=== PATIENT | male | born 1965 | race African-American/Black ===

== ENCOUNTER 2017-09-03 12:12 | Inpatient (IN) | payer OTHER ==
[2017-09-03 13:25] VITALS: BMI 20.3
--- NOTE | 2017-09-03 14:11 | HP ---
CIWA Score - CIWA Score Nausea/Vomitin-Mild Nausea/No Vomiting Muscle Tremors: 4-Moderate,w/Arms Extend Anxiety: 4-Mod. Anxious/Guarded Agitation: 4-Moderately Restless Paroxysmal Sweats: 1-Minimal Palms Moist Orientation: 0-Oriented Tacttile Disturbances: 1-Very Mild Itch/Numbness Auditory Disturbances: 0-None Visual Disturbances: 0-None Headache: 1-Very Mild CIWA-Ar Total Score: 16 Admission ROS BHS - HPI Chief Complaint: alcohol withdrawal sx Allergies/Adverse Reactions: Allergies Allergy/AdvReac Type Severity Reaction Status Date / Time No Known Allergies Allergy Verified 09/03/17 14:12 History of Present Illness: 52 years old male with long history of alcohol nicotine dependence has depression is admitted to detox Exam Limitations: No Limitations - Ebola screening Have you traveled outside of the country in the last 21 days: No Have you had contact with anyone from an Ebola affected area: No Have you been sick,other than usual withdrawal symptoms: No Do you have a fever: No - Review of Systems Constitutional: Chills, Loss of Appetite, Unintentional Wgt. Loss, Unexplained wgt Loss EENT: reports: Blurred Vision (eye glassess at home) Respiratory: reports: No Symptoms reported Cardiac: reports: No Symptoms Reported GI: reports: Nausea, Poor Appetite, Poor Fluid Intake, Abdominal cramping : reports: No Symptoms Reported Musculoskeletal: reports: No Symptoms Reported Integumentary: reports: No Symptoms Reported Neuro: reports: Tremors Endocrine: reports: No Symptoms Reported Hematology: reports: No Symptoms Reported Psychiatric: reports: Judgement Intact, Orientated x3, Anxious, Depressed Other Systems: Reviewed and Negative Patient History - Patient Medical History Hx Anemia: No Hx Asthma: No Hx Chronic Obstructive Pulmonary Disease (COPD): No Hx Cancer: No Hx Cardiac Disorders: No Hx Congestive Heart Failure: No Hx Hypertension: No Hx Hypercholesterolemia: No Hx Pacemaker: No HX Cerebrovascular Accident: No Hx Seizures: No Hx Dementia: No Hx Diabetes: No Hx Gastrointestinal Disorders: No Hx Liver Disease: No Hx Genitourinary Disorders: No Hx Sexually Transmitted Disorders: No Hx Renal Disease (ESRD): No Hx Thyroid Disease: No Hx Human Immunodeficiency Virus (HIV): No Hx Hepatitis C: No Hx Depression: Yes Hx Suicide Attempt: No Hx Bipolar Disorder: No Hx Schizophrenia: No - Patient Surgical History Past Surgical History: No - PPD History Previous Implant?: Yes Documented Results: Negative w/o proof Implanted On Prior [facility] Admission?: No PPD to be Administered?: Yes - Smoking Cessation Smoking history: Current every day smoker Have you smoked in the past 12 months: Yes Aproximately how many cigarettes per day: 10 Cigars Per Day: 0 Hx Chewing Tobacco Use: No Initiated information on smoking cessation: Yes 'Breaking Loose' booklet given: 09/03/17 - Substance & Tx. History Hx Alcohol Use: Yes Hx Substance Use: No Substance Use Type: Alcohol Hx Substance Use Treatment: No Family Disease History - Family Disease History Family Disease History: Other: Father (), Mother (), Sister ( ) Other Family History: adopted since age 4-5 Admission Physical Exam BHS - Vital Signs Vital Signs: Vital Signs - 24 hr 09/03/17 13:24 Temperature 97.4 F L Pulse Rate 80 Respiratory 20 Rate Blood Pressure 133/93 - Physical General Appearance: Yes: Appropriately Dressed, Mild Distress, Thin, Tremorous, Irritable, Sweating, Anxious HEENTM: Yes: Hearing grossly Normal, Normocephalic, Normal Voice Respiratory: Yes: Chest Non-Tender, Lungs Clear, Normal Breath Sounds, No Respiratory Distress, No Accessory Muscle Use Neck: Yes: Supple, Trachea in good position Breast: Yes: Breasts Symetrical, No Discharge Cardiology: Yes: Regular Rhythm, Regular Rate, S1, S2 Abdominal: Yes: Normal Bowel Sounds, Non Tender, Flat Genitourinary: Yes: Within Normal Limits Back: Yes: Normal Inspection Musculoskeletal: Yes: full range of Motion, Gait Steady Extremities: Yes: Normal Inspection, Normal Range of Motion, Non-Tender, Tremors Neurological: Yes: Fully Oriented, Alert, Motor Strength 5/5, Normal Response, Depressed Affect Integumentary: Yes: Warm Lymphatic: Yes: Within Normal Limits - Diagnostic (1) Alcohol dependence with uncomplicated withdrawal Current Visit: Yes Status: Acute (2) Eczema marginatum Current Visit: Yes Status: Chronic (3) Nicotine dependence Current Visit: Yes Status: Acute Qualifiers: Nicotine product type: cigarettes Substance use status: in withdrawal Qualified Code(s): F17.213 - Nicotine dependence, cigarettes, with withdrawal (4) Weight loss Current Visit: Yes Status: Acute (5) Depression (emotion) Current Visit: Yes Status: Suspected Qualifiers: Depression Type: dysthymia Qualified Code(s): F34.1 - Dysthymic disorder Cleared for Admission [facility] - Detox or Rehab [facility] Level of Care: Medically Managed Detox Regimen/Protocol: Librium [facility] Breath Alcohol Content Breath Alcohol Content: 0.032 Urine Drug Screen - Control Is Test Valid: Yes - Results Drug Screen Negative: Yes
[2017-09-03] MEDS ORDERED: ACETAMINOPHEN 325 MG TABLET (FP) PO PRN (14:30)
[2017-09-03] MEDS ORDERED: LOPERAMIDE HCL 2 MG CAPSULE PO PRN (14:30)
[2017-09-03] MEDS ORDERED: MAGNESIUM HYDROX 2400MG/30ML ORAL SUSPENSION 30 ML CUP PO PRN (14:30)
[2017-09-03] MEDS ORDERED: P-EPHED 60MG/TRIPROLIDI 2.5MG TABLET PO PRN (14:30)
[2017-09-03] MEDS ORDERED: MAGNESIUM CITRATE 300 ML BOTTLE PO PRN (14:30)
[2017-09-03] MEDS ORDERED: MAG HYDROX/AL HYDROX/SIMETH 30 ML UNIT-DOSE CUP PO PRN (14:30)
[2017-09-03] MEDS ORDERED: IBUPROFEN 400 MG TABLET (FP) PO PRN (14:30)
[2017-09-03] MEDS ORDERED: chlordiazePOXIDE HCL 25 MG CAPSULE PO PRN (14:30)
[2017-09-03] MEDS ORDERED: guaiFENesin/D-METHORPHAN HB 10 ML UNIT-DOSE CUPS PO PRN (14:30)
[2017-09-03] MEDS ORDERED: MENTHOL/PHENOL 1 EACH UD MM PRN (14:30)
[2017-09-03] MEDS ORDERED: COLLOIDAL OATMEAL 1 BAR EACH TP PRN (14:36)
[2017-09-03] MEDS ORDERED: chlordiazePOXIDE HCL 25 MG CAPSULE PO ONE (16:45)
[2017-09-03] MEDS: NICOTINE 14 MG/24 HOURS TOPICAL PATCH TD SCH (17:09)
[2017-09-03] MEDS: NICOTINE POLACRILEX 2 MG GUM BC PRN (17:15)
[2017-09-03] MEDS: THIAMINE HCL 100 MG TABLET (FP) PO SCH (22:17)
[2017-09-03] MEDS: MELATONIN 5 MG TABLETS PO PRN (22:18)
[2017-09-03] MEDS: MINERAL OIL/PETROLAT/WATER TOPICAL CREAM 113 GM JAR TP SCH (22:18)
[2017-09-03] MEDS: chlordiazePOXIDE HCL 25 MG CAPSULE PO SCH (22:18)
[2017-09-04] MEDS: chlordiazePOXIDE HCL 25 MG CAPSULE PO SCH ×4 (05:29→23:44)
--- NOTE | 2017-09-04 10:00 | CONSULT ---
[facility] Psychiatric Consult - Data Date of interview: 09/04/17 Admission source: [facility] Identifying data: Mr Faye is a 52 years old single Black male, father of a 23 years old daughter, unemployed with no source of income, domiciled seeking detox treatment for alcohol Substance Abuse History: Reports history of alcohol use. Refer to addiction counselor's note for further information Medical History: Significant for eczema. Smokes 10 cigarettes daily Psychiatric History: Denies history of previous psychiatric treatment Physical/Sexual Abuse/Trauma History: Denies history of emotional, physical or sexual abuse as well as DV relationship Mental Status Exam - Mental Status Exam Alert and Oriented to: Time, Place, Person Cognitive Function: Fair Patient Appearance: Well Groomed Mood: Hopeful, Euthymic Affect: Appropriate Patient Behavior: Cooperative Speech Pattern: Clear Voice Loudness: Normal Thought Process: Intact, Goal Oriented Thought Disorder: Not Present Hallucinations: Denies Suicidal Ideation: Denies Homicidal Ideation: Denies Insight/Judgement: Poor Sleep: Well Appetite: Good Muscle strength/Tone: Normal Gait/Station: Normal Psychiatric Findings - Problem List ([place] 1, 2,3) (1) Alcohol dependence with uncomplicated withdrawal Current Visit: Yes Status: Acute (2) Nicotine dependence Current Visit: Yes Status: Chronic Qualifiers: Nicotine product type: cigarettes Substance use status: in withdrawal Qualified Code(s): F17.213 - Nicotine dependence, cigarettes, with withdrawal (3) Eczema marginatum Current Visit: Yes Status: Chronic - Initial Treatment Plan Initial Treatment Plan: Continue inpatient detoxication
[2017-09-04] MEDS: PRENATAL VITAMINS W/ FOLIC ACID TABLET (FP) PO SCH (10:09)
[2017-09-04] MEDS: NICOTINE POLACRILEX 2 MG GUM BC PRN ×2 (10:09→17:28)
[2017-09-04] MEDS: NICOTINE 14 MG/24 HOURS TOPICAL PATCH TD SCH (10:10)
[2017-09-04 10:19] LABS: HEMATOCRIT 36.5 % (35.4-49); HEMOGLOBIN 12.5 GM/dL (11.7-16.9); MCH 34.5 pg (25.7-33.7); MCHC 34.4 g/dl (32.0-35.9); MEAN CELL VOLUME 100.3 fl (80-96); MEAN PLT VOLUME 8.3 fl (7.5-11.1); PLATELET COUNT 182 K/MM3 (134-434); RBC 3.63 M/mm3 (4.00-5.60); RDW 13.5 % (11.9-15.9); WHITE BLOOD COUNT 6.4 K/mm3 (4.0-10.0)
[2017-09-04 10:22] LABS: CHLORIDE 98 mmol/L (98-107); POTASSIUM 4.3 mmol/L (3.5-5.1); SODIUM 135 mmol/L (136-145)
[2017-09-04 10:46] LABS: ALK PHOS 173 U/L (45-117); ANION GAP 11 (8-16); BILIRUBIN,TOTAL 0.9 mg/dL (0.2-1.0); BLOOD UREA NITROGEN 5 mg/dL (7-18); CALCIUM 8.7 mg/dL (8.5-10.1); CO2 26 mmol/L (21-32); GLUCOSE,RANDOM 128 mg/dL (74-106); SGOT/AST 81 U/L (15-37); SGPT/ALT 26 U/L (12-78); TOT PROT 8.2 g/dl (6.4-8.2)
--- NOTE | 2017-09-04 12:03 | EKG ---
Test Reason : Blood Pressure : / mmHG Vent. Rate : 062 BPM Atrial Rate : 062 BPM P-R Int : 170 ms QRS Dur : 080 ms QT Int : 398 ms P-R-T Axes : 059 059 057 degrees QTc Int : 403 ms NORMAL SINUS RHYTHM VOLTAGE CRITERIA FOR LEFT VENTRICULAR HYPERTROPHY ABNORMAL ECG NO PREVIOUS ECGS AVAILABLE Confirmed by RIOS TOM MD ([id number]) on 09/04/2017 12:03:06 PM Referred By: Confirmed By:RIOS TOM MD
--- NOTE | 2017-09-04 12:55 | PN ---
S CIWA - CIWA Score Nausea/Vomitin-No Nausea/No Vomiting Muscle Tremors: 2 Anxiety: 4-Mod. Anxious/Guarded Agitation: 2 Paroxysmal Sweats: 3 Orientation: 0-Oriented Tacttile Disturbances: 2-Mild Itch/Numbness/Burn Auditory Disturbances: 1-Very Mild Visual Disturbances: 3-Moderate Sensitivity Headache: 0-None Present CIWA-Ar Total Score: 17 BHS Progress Note (SOAP) Subjective: Tremors, Sweating, Anxious, Body Aches. Objective: PATIENT A & O X 3. NO ACUTE DISTRESS. 09/04/17 12:55 Vital Signs Temperature 98.1 F 09/04/17 09:25 Pulse Rate 87 09/04/17 09:25 Respiratory Rate 20 09/04/17 09:25 Blood Pressure 135/94 09/04/17 09:25 O2 Sat by Pulse Oximetry (%) Laboratory Tests 09/04/17 09/04/17 09/04/17 06:00 06:00 06:00 WBC 6.4 RBC 3.63 L Hgb 12.5 Hct 36.5 MCV 100.3 H MCH 34.5 H MCHC 34.4 RDW 13.5 Plt Count 182 MPV 8.3 Sodium 135 L Potassium 4.3 Chloride 98 Carbon Dioxide 26 Anion Gap 11 BUN 5 L Creatinine 1.0 Creat Clearance w eGFR > 60 Random Glucose 128 H Calcium 8.7 Total Bilirubin 0.9 AST 81 H ALT 26 Alkaline Phosphatase 173 H Total Protein 8.2 Albumin 4.0 RPR Titer Nonreactive LABS NOTED. UA RESULTS PENDING. 09/04/17 12:56 Assessment: 09/04/17 12:56 [id number] SYMPTOMS. Plan: CONTINUE DETOX. INCREASE DAILY PO FLUID INTAKE.
[2017-09-04 17:31] LABS: URINE APPEARANCE CLEAR; URINE BILIRUBIN NEGATIVE (<2.0 mg/dL); URINE COLOR YELLOW; URINE GLUCOSE (UA) NEGATIVE (NEGATIVE); URINE KETONE NEGATIVE (NEGATIVE); URINE LEUK ESTERASE NEGATIVE (NEGATIVE); URINE NITRITE NEGATIVE (NEGATIVE); URINE PROTEIN 2+ (NEGATIVE)
[2017-09-04 17:55] LABS: URINE MUCUS RARE
--- NOTE | 2017-09-04 18:42 | PN ---
[facility] Progress Note Note: Patient s/p unwitnessed fall in the dinning area. As per patient his legs felt weak and he fell and hit the table with his chest. Denies JOHNSON, SOB, CP, vertigo. Vital Signs Temperature 95.3 F L 09/04/17 17:55 Pulse Rate 82 09/04/17 17:55 Respiratory Rate 18 09/04/17 17:55 Blood Pressure 129/86 09/04/17 17:55 O2 Sat by Pulse Oximetry (%) Laboratory Last Values WBC 6.4 K/mm3 (4.0-10.0) 09/04/17 06:00 RBC 3.63 M/mm3 (4.00-5.60) L 09/04/17 06:00 Hgb 12.5 GM/dL (11.7-16.9) 09/04/17 06:00 Hct 36.5 % (35.4-49) 09/04/17 06:00 MCV 100.3 fl (80-96) H 09/04/17 06:00 MCH 34.5 pg (25.7-33.7) H 09/04/17 06:00 MCHC 34.4 g/dl (32.0-35.9) 09/04/17 06:00 RDW 13.5 % (11.9-15.9) 09/04/17 06:00 Plt Count 182 K/MM3 (134-434) 09/04/17 06:00 MPV 8.3 fl (7.5-11.1) 09/04/17 06:00 Sodium 135 mmol/L (136-145) L 09/04/17 06:00 Potassium 4.3 mmol/L (3.5-5.1) 09/04/17 06:00 Chloride 98 mmol/L (98-107) 09/04/17 06:00 Carbon Dioxide 26 mmol/L (21-32) 09/04/17 06:00 Anion Gap 11 (8-16) 09/04/17 06:00 BUN 5 mg/dL (7-18) L 09/04/17 06:00 Creatinine 1.0 mg/dL (0.7-1.3) 09/04/17 06:00 Creat Clearance w eGFR > 60 (>60) 09/04/17 06:00 Random Glucose 128 mg/dL (74-106) H 09/04/17 06:00 Calcium 8.7 mg/dL (8.5-10.1) 09/04/17 06:00 Total Bilirubin 0.9 mg/dL (0.2-1.0) 09/04/17 06:00 AST 81 U/L (15-37) H 09/04/17 06:00 ALT 26 U/L (12-78) 09/04/17 06:00 Alkaline Phosphatase 173 U/L (45-117) H 09/04/17 06:00 Total Protein 8.2 g/dl (6.4-8.2) 09/04/17 06:00 Albumin 4.0 g/dl (3.4-5.0) 09/04/17 06:00 Urine Color Yellow 09/04/17 13:40 Urine Appearance Clear 09/04/17 13:40 Urine pH 7.0 (5.0-8.0) 09/04/17 13:40 Ur Specific [place] 1.015 (1.001-1.035) 09/04/17 13:40 Urine Protein 2+ (NEGATIVE) H 09/04/17 13:40 Urine Glucose (UA) Negative (NEGATIVE) 09/04/17 13:40 Urine Ketones Negative (NEGATIVE) 09/04/17 13:40 Urine Blood Negative (NEGATIVE) 09/04/17 13:40 Urine Nitrite Negative (NEGATIVE) 09/04/17 13:40 Urine Bilirubin Negative (<2.0 mg/dL) 09/04/17 13:40 Urine Urobilinogen 2.0 mg/dL (0.2-1.0) 09/04/17 13:40 Ur Leukocyte Esterase Negative (NEGATIVE) 09/04/17 13:40 Urine WBC (Auto) <1 /hpf (3-5) 09/04/17 13:40 Urine RBC (Auto) 1 /hpf (0-3) 09/04/17 13:40 Urine Mucus Rare 09/04/17 13:40 RPR Titer Nonreactive (NONREACTIVE) 09/04/17 06:00 A/P Patient AOx3, no loss LOC Full ROM No adventitious breath sounds No edema Plan: Fall Protocol #1
[2017-09-04] MEDS: MINERAL OIL/PETROLAT/WATER TOPICAL CREAM 113 GM JAR TP SCH (23:43)
[2017-09-04] MEDS: THIAMINE HCL 100 MG TABLET (FP) PO SCH (23:44)
[2017-09-05] MEDS: chlordiazePOXIDE HCL 25 MG CAPSULE PO SCH ×3 (05:34→17:23)
[2017-09-05] MEDS: NICOTINE POLACRILEX 2 MG GUM BC PRN ×3 (08:57→22:34)
[2017-09-05] MEDS: NICOTINE 14 MG/24 HOURS TOPICAL PATCH TD SCH (10:06)
[2017-09-05] MEDS: PRENATAL VITAMINS W/ FOLIC ACID TABLET (FP) PO SCH (10:06)
--- NOTE | 2017-09-05 10:30 | PN ---
S CIWA - CIWA Score Nausea/Vomitin-No Nausea/No Vomiting Muscle Tremors: 2 Anxiety: 3 Agitation: 1-Slight > Activity Paroxysmal Sweats: No Perspiration Orientation: 0-Oriented Tacttile Disturbances: 3-Moderate Itch/Numb/Burn Auditory Disturbances: 0-None Visual Disturbances: 3-Moderate Sensitivity Headache: 0-None Present CIWA-Ar Total Score: 12 BHS Progress Note (SOAP) Subjective: Fatigue, Constipation, Tremors. Patient denies body pain and H/A. Patient denies any wound or injury to head or body after fall that occurred last night in [place] (patient was evaluated [facility] after fall occurred). Objective: PATIENT A & O X 3. NO ACUTE DISTRESS. CT SCAN OF HEAD DONE AT [facility] FOR FALL THAT OCCURRED LAST NIGHT NEGATIVE FOR ACUTE PATHOLOGY. 09/05/17 10:29 Vital Signs Temperature 96.6 F L 09/05/17 10:10 Pulse Rate 107 H 09/05/17 10:10 Respiratory Rate 20 09/05/17 10:10 Blood Pressure 119/81 09/05/17 10:10 O2 Sat by Pulse Oximetry (%) Laboratory Tests 09/04/17 09/04/17 09/04/17 06:00 06:00 06:00 WBC 6.4 RBC 3.63 L Hgb 12.5 Hct 36.5 MCV 100.3 H MCH 34.5 H MCHC 34.4 RDW 13.5 Plt Count 182 MPV 8.3 Sodium 135 L Potassium 4.3 Chloride 98 Carbon Dioxide 26 Anion Gap 11 BUN 5 L Creatinine 1.0 Creat Clearance w eGFR > 60 Random Glucose 128 H Calcium 8.7 Total Bilirubin 0.9 AST 81 H ALT 26 Alkaline Phosphatase 173 H Total Protein 8.2 Albumin 4.0 Urine Color Urine Appearance Urine pH Ur Specific [place] Urine Protein Urine Glucose (UA) Urine Ketones Urine Blood Urine Nitrite Urine Bilirubin Urine Urobilinogen Ur Leukocyte Esterase Urine WBC (Auto) Urine RBC (Auto) Urine Mucus RPR Titer Nonreactive 09/04/17 13:40 WBC RBC Hgb Hct MCV MCH MCHC RDW Plt Count MPV Sodium Potassium Chloride Carbon Dioxide Anion Gap BUN Creatinine Creat Clearance w eGFR Random Glucose Calcium Total Bilirubin AST ALT Alkaline Phosphatase Total Protein Albumin Urine Color Yellow Urine Appearance Clear Urine pH 7.0 Ur Specific [place] 1.015 Urine Protein 2+ H Urine Glucose (UA) Negative Urine Ketones Negative Urine Blood Negative Urine Nitrite Negative Urine Bilirubin Negative Urine Urobilinogen 2.0 Ur Leukocyte Esterase Negative Urine WBC (Auto) <1 Urine RBC (Auto) 1 Urine Mucus Rare RPR Titer LABS NOTED. 09/05/17 10:34 Assessment: 09/05/17 10:35 WITHDRAWAL SYMPTOMS. Plan: CONTINUE DETOX. INCREASE DAILY PO FLUID INTAKE. ER MEDICAL MEDICAL PROVIDER WHO EVALUATE PATIENT AFTER FALL LAST NIGHT RECOMMENDED AMLODIPINE, 5 MG PO DAILY FOR TIME BEING DUE TO ELEVATED BP. HOWEVER , LAST COUPLE OF BP READINGS WITHIN NORMAL LIMITS. WILL OBSERVE AND MONITOR BP BEFORE DETERMINING WHETHER OR NOT TO ORDER AMLODIPINE OVER NEXT COUPLE OF DAYS.
[2017-09-05] MEDS: chlordiazePOXIDE 5 MG CAPSULE PO SCH (22:33)
[2017-09-05] MEDS: THIAMINE HCL 100 MG TABLET (FP) PO SCH (22:33)
[2017-09-05] MEDS: MINERAL OIL/PETROLAT/WATER TOPICAL CREAM 113 GM JAR TP SCH (22:34)
[2017-09-05] MEDS: MELATONIN 5 MG TABLETS PO PRN (22:36)
[2017-09-06] MEDS: chlordiazePOXIDE 5 MG CAPSULE PO SCH ×3 (05:34→17:34)
[2017-09-06] MEDS: NICOTINE POLACRILEX 2 MG GUM BC PRN ×2 (05:37→22:28)
[2017-09-06] MEDS: PRENATAL VITAMINS W/ FOLIC ACID TABLET (FP) PO SCH (10:20)
[2017-09-06] MEDS: NICOTINE 14 MG/24 HOURS TOPICAL PATCH TD SCH (10:21)
--- NOTE | 2017-09-06 15:05 | PN ---
[facility] Progress Note (SOAP) Subjective: Fatigue, Sweating. Objective: PATIENT A & O X 3, OBSERVED AMBULATING ON UNIT. NO ACUTE DISTRESS. 09/06/17 15:03 Vital Signs Temperature 97.7 F 09/06/17 14:48 Pulse Rate 117 H 09/06/17 14:48 Respiratory Rate 20 09/06/17 14:48 Blood Pressure 111/75 09/06/17 14:48 O2 Sat by Pulse Oximetry (%) Laboratory Tests 09/04/17 09/04/17 09/04/17 06:00 06:00 06:00 WBC 6.4 RBC 3.63 L Hgb 12.5 Hct 36.5 MCV 100.3 H MCH 34.5 H MCHC 34.4 RDW 13.5 Plt Count 182 MPV 8.3 Sodium 135 L Potassium 4.3 Chloride 98 Carbon Dioxide 26 Anion Gap 11 BUN 5 L Creatinine 1.0 Creat Clearance w eGFR > 60 Random Glucose 128 H Calcium 8.7 Total Bilirubin 0.9 AST 81 H ALT 26 Alkaline Phosphatase 173 H Total Protein 8.2 Albumin 4.0 Urine Color Urine Appearance Urine pH Ur Specific [place] Urine Protein Urine Glucose (UA) Urine Ketones Urine Blood Urine Nitrite Urine Bilirubin Urine Urobilinogen Ur Leukocyte Esterase Urine WBC (Auto) Urine RBC (Auto) Urine Mucus RPR Titer Nonreactive 09/04/17 13:40 WBC RBC Hgb Hct MCV MCH MCHC RDW Plt Count MPV Sodium Potassium Chloride Carbon Dioxide Anion Gap BUN Creatinine Creat Clearance w eGFR Random Glucose Calcium Total Bilirubin AST ALT Alkaline Phosphatase Total Protein Albumin Urine Color Yellow Urine Appearance Clear Urine pH 7.0 Ur Specific [place] 1.015 Urine Protein 2+ H Urine Glucose (UA) Negative Urine Ketones Negative Urine Blood Negative Urine Nitrite Negative Urine Bilirubin Negative Urine Urobilinogen 2.0 Ur Leukocyte Esterase Negative Urine WBC (Auto) <1 Urine RBC (Auto) 1 Urine Mucus Rare RPR Titer LABS NOTED. Assessment: 09/06/17 15:03 WITHDRAWAL SYMPTOMS. Plan: CONTINUE DETOX. PATIENT SCHEDULED FOR D/C TOMORROW.
[2017-09-06] MEDS: chlordiazePOXIDE HCL 10 MG CAPSULE PO SCH (22:27)
[2017-09-06] MEDS: THIAMINE HCL 100 MG TABLET (FP) PO SCH (22:27)
[2017-09-06] MEDS: MINERAL OIL/PETROLAT/WATER TOPICAL CREAM 113 GM JAR TP SCH (22:28)
[2017-09-06] MEDS: MELATONIN 5 MG TABLETS PO PRN (22:28)
[2017-09-07] MEDS: chlordiazePOXIDE HCL 10 MG CAPSULE PO SCH (05:17)
[2017-09-07] MEDS: NICOTINE POLACRILEX 2 MG GUM BC PRN (05:18)
[2017-09-07 06:23] VITALS: BP 124/71; PULSE 69; TEMP 97.9
--- NOTE | 2017-09-07 20:01 | PN ---
[facility] Progress Note (SOAP) Subjective: Patient denies current Detox symptoms and reports that he feels well overall. Objective: PATIENT A & O X 3, OBSERVED AMBULATING ON UNIT. NO ACUTE DISTRESS. 09/07/17 20:01 Vital Signs Temperature 97.9 F 09/07/17 06:22 Pulse Rate 69 09/07/17 06:22 Respiratory Rate 18 09/07/17 06:22 Blood Pressure 124/71 09/07/17 06:22 O2 Sat by Pulse Oximetry (%) Laboratory Tests 09/04/17 09/04/17 09/04/17 06:00 06:00 06:00 WBC 6.4 RBC 3.63 L Hgb 12.5 Hct 36.5 MCV 100.3 H MCH 34.5 H MCHC 34.4 RDW 13.5 Plt Count 182 MPV 8.3 Sodium 135 L Potassium 4.3 Chloride 98 Carbon Dioxide 26 Anion Gap 11 BUN 5 L Creatinine 1.0 Creat Clearance w eGFR > 60 Random Glucose 128 H Calcium 8.7 Total Bilirubin 0.9 AST 81 H ALT 26 Alkaline Phosphatase 173 H Total Protein 8.2 Albumin 4.0 Urine Color Urine Appearance Urine pH Ur Specific [place] Urine Protein Urine Glucose (UA) Urine Ketones Urine Blood Urine Nitrite Urine Bilirubin Urine Urobilinogen Ur Leukocyte Esterase Urine WBC (Auto) Urine RBC (Auto) Urine Mucus RPR Titer Nonreactive 09/04/17 13:40 WBC RBC Hgb Hct MCV MCH MCHC RDW Plt Count MPV Sodium Potassium Chloride Carbon Dioxide Anion Gap BUN Creatinine Creat Clearance w eGFR Random Glucose Calcium Total Bilirubin AST ALT Alkaline Phosphatase Total Protein Albumin Urine Color Yellow Urine Appearance Clear Urine pH 7.0 Ur Specific [place] 1.015 Urine Protein 2+ H Urine Glucose (UA) Negative Urine Ketones Negative Urine Blood Negative Urine Nitrite Negative Urine Bilirubin Negative Urine Urobilinogen 2.0 Ur Leukocyte Esterase Negative Urine WBC (Auto) <1 Urine RBC (Auto) 1 Urine Mucus Rare RPR Titer LABS NOTED. Assessment: 09/07/17 20:01 COMPLETION OF DETOX REGIMEN. Plan: PATIENT SCHEDULED FOR DISCHARGE FORM DETOX UNIT TODAY.
--- NOTE | 2017-09-07 20:05 | DS ---
[facility] Detox Discharge Summary Admission Date: 09/03/17 Discharge Date: 09/07/17 - History Present History: Alcohol Dependence Additional Comments: PATIENT GOING TO [facility] OUTPATIENT SUBSTANCE USE TREATMENT PROGRAM ([facility]ES [facility]) FOR AFTERCARE. PATIENT WAS DISCHARGED FORM DETOX UNIT IN STABLE MEDICAL CONDITION. Pertinent Past History: Weight Loss, Depression, Eczema Marginatum, Nicotine Dependence. - Physical Exam Results Vital Signs: Vital Signs Temperature 97.9 F 09/07/17 06:22 Pulse Rate 69 09/07/17 06:22 Respiratory Rate 18 09/07/17 06:22 Blood Pressure 124/71 09/07/17 06:22 O2 Sat by Pulse Oximetry (%) Pertinent Admission Physical Exam Findings: WITHDRAWAL SYMPTOMS. Laboratory Tests 09/04/17 09/04/17 09/04/17 06:00 06:00 06:00 WBC 6.4 RBC 3.63 L Hgb 12.5 Hct 36.5 MCV 100.3 H MCH 34.5 H MCHC 34.4 RDW 13.5 Plt Count 182 MPV 8.3 Sodium 135 L Potassium 4.3 Chloride 98 Carbon Dioxide 26 Anion Gap 11 BUN 5 L Creatinine 1.0 Creat Clearance w eGFR > 60 Random Glucose 128 H Calcium 8.7 Total Bilirubin 0.9 AST 81 H ALT 26 Alkaline Phosphatase 173 H Total Protein 8.2 Albumin 4.0 Urine Color Urine Appearance Urine pH Ur Specific [place] Urine Protein Urine Glucose (UA) Urine Ketones Urine Blood Urine Nitrite Urine Bilirubin Urine Urobilinogen Ur Leukocyte Esterase Urine WBC (Auto) Urine RBC (Auto) Urine Mucus RPR Titer Nonreactive 09/04/17 13:40 WBC RBC Hgb Hct MCV MCH MCHC RDW Plt Count MPV Sodium Potassium Chloride Carbon Dioxide Anion Gap BUN Creatinine Creat Clearance w eGFR Random Glucose Calcium Total Bilirubin AST ALT Alkaline Phosphatase Total Protein Albumin Urine Color Yellow Urine Appearance Clear Urine pH 7.0 Ur Specific [place] 1.015 Urine Protein 2+ H Urine Glucose (UA) Negative Urine Ketones Negative Urine Blood Negative Urine Nitrite Negative Urine Bilirubin Negative Urine Urobilinogen 2.0 Ur Leukocyte Esterase Negative Urine WBC (Auto) <1 Urine RBC (Auto) 1 Urine Mucus Rare RPR Titer LABS NOTED. - Treatment Hospital Course: Detox Protocol Followed, Detoxed Safely, Responded well, Discharged Condition Good Patient has Accepted a Rehab Referral to: PT GOING TO [facility] OP SUBSTACNE USE TREATMENT PROGRAM ([facility]ri[facility]MPHRE[facility]). - Medication Discharge Medications: Ambulatory Orders Amlodipine Besylate [Norvasc -] 5 mg PO DAILY #14 tab 09/05/17 - Diagnosis (1) Alcohol dependence with uncomplicated withdrawal Status: Acute (2) Weight loss Status: Acute (3) Eczema marginatum Status: Chronic (4) Nicotine dependence Status: Chronic Qualifiers: Nicotine product type: cigarettes Substance use status: in withdrawal Qualified Code(s): F17.213 - Nicotine dependence, cigarettes, with withdrawal (5) Depression (emotion) Status: Suspected Qualifiers: Depression Type: dysthymia Qualified Code(s): F34.1 - Dysthymic disorder - AMA Did Patient Leave Against Medical Advice: No
== END 2017-09-07 09:39 | disposition home or self-care (01) | DRG 775 ==
LOC: YASAS 12:12 → Y3N 15:39
PROVIDERS: ADMIT Internal Medicine; ATTEND Internal Medicine
PROC: HZ2ZZZZ Detoxification Services for Substance Abuse Treatment (ICD-10-PCS; principal; 2017-09-03)
DX: F10.230 Alcohol dependence with withdrawal, uncomplicated (principal); F17.213 Nicotine dependence, cigarettes, with withdrawal; F34.1 Dysthymic disorder; B35.6 Tinea cruris; Z68.20 Body mass index [BMI] 20.0-20.9, adult
CPT/HCPCS: 36415; 80053; 81003; 81015; 85027; 86593; 93005; 93010

== ENCOUNTER 2017-09-04 21:05 | Emergency (ER) | payer OTHER ==
[2017-09-04 21:15] VITALS: BMI 25.1
--- NOTE | 2017-09-04 21:36 | PDOC ---
Attending Attestation - Resident Resident Name: Austin Calero - ED Attending Attestation I have performed the following: I have examined & evaluated the patient, The case was reviewed & discussed with the resident, I agree w/resident's findings & plan, Exceptions are as noted - Physicial Exam PE: 09/04/17 21:43 *Physical Exam General Appearance: Yes: Appropriately Dressed. No: Apparent Distress, Intoxicated HEENT: positive: EOMI, LESLIE, Normal ENT Inspection, Normal Voice, TMs Normal, Pharynx Normal. negative: Pale Conjunctivae, Photophobia, Scleral Icterus (R), Scleral Icterus (L) Neck: positive: Trachea midline, Normal Thyroid, Supple. negative: Tender, Rigid, Carotid bruit, Stridor, Lymphadenopathy (R), Lymphadenopathy (L), Thyromegaly Respiratory/Chest: positive: Lungs Clear, Normal Breath Sounds. negative: Chest Tender, Respiratory Distress, Accessory Muscle Use, Labored Respiration, RES, Crackles, Rales, Rhonchi, Stridor, Wheezing, Dullness Cardiovascular: positive: Regular Rhythm, Regular Rate, S1, S2. negative: Edema , JVD, Murmur, Bradycardia, Tachycardia Vascular Pulses: Dorsalis-Pedis (R): 2+, Doralis-Pedis (L): 2+ Gastrointestinal/Abdominal: positive: Normal Bowel Sounds, Flat, Soft. negative : Tender, Organomegaly, Pulsatile Mass, Increased Bowel Sounds, Decreased BS, Distended, Guarding, Rebound, Hernia, Hepatomegaly, Spleenomegaly Lymphatic: negative: Adenopathy, Tenderness Musculoskeletal: positive: Normal Inspection. negative: CVA Tenderness, Decreased Range of Motion Extremity: positive: Normal Capillary Refill, Normal Inspection, Normal Range of Motion, Pelvis Stable. negative: Tender, Pedal Edema, Swelling, Erythema Integumentary: positive: Normal Color, Dry, Warm. negative: Cyanotic, Erythema , Jaundice, Rash Neurologic: positive: event specialist II-XII NML intact, Fully Oriented, Alert, Normal Mood/ Affect, Motor Strength 5/5. negative: EOM Palsy, Facial Droop, Sensory Deficit <Ron Zepeda - Last Filed: 09/04/17 21:43> - HPI HPI: 09/04/17 21:49 The patient is 52 year old male with past medical history of depression presents to the emergency department s/p unwitnessed fall. The patient is coming from [facility] [place] [facility], on a detox program, after falling and hitting his chest. The patient reports for the past 1 year hes been experiencing episodes of lightheadedness w/ ataxia, during these episodes he would sit himself down or have a beer, then resolves on its own. The patient states out of all the episodes only 3 has been worse, 2x at home and 1x at [place] [facility]. The patient currently has no complains. Denies chest pain, SOB, wheezing. Denies numbness, tingling or loss of sensation. Denies loss of conscious or hitting his head. Allergies: NKDA Social history: As per the reports, the patient has a long history of alcohol use. Everyday use of cigarettes. Denies the use of recreational drugs. Surgical history: None reported - Medical Decision Making 09/04/17 21:49 Documentation prepared by Bing Warren, acting as medical malpractice paralegal for Ron Zepeda DO <Bing Warren - Last Filed: 09/04/17 21:50>
--- NOTE | 2017-09-04 22:51 | PDOC ---
History of Present Illness - General Chief Complaint: Injury Stated Complaint: FALL Time Seen by Provider: 09/04/17 21:22 History Source: Patient Exam Limitations: No Limitations - History of Present Illness Initial Comments: 09/04/17 22:51 The patient is a 52M with a PMH of preHTN and EtOH abuse (last drink 3 days ago - at [facility] and on librium) who presents to the ER with complaints of an unsteady gait. The patient states that every day for 1 year he gets an episode of lightheadedness and feels like he cannot walk in a straight line. This lasts for 10-15 minutes and is only associated with a fall twice, once being today, and then once last week when he fell into bed. He states that normally when he feels this lightheadedness sensation, he has a beer and the sensation goes away. He states that he fell today while at [facility], did not strike his head, but came for evaluation. He denies any CP, SOB, fever, chills, numbness, tingling, or weakness now or during these episodes. He has no acute complaints. Past History - Past Medical History Allergies/Adverse Reactions: Allergies Allergy/AdvReac Type Severity Reaction Status Date / Time No Known Allergies Allergy Verified 09/04/17 21:11 Home Medications: Ambulatory Orders Amlodipine Besylate [Norvasc -] 5 mg PO DAILY #14 tab 09/05/17 Anemia: No Asthma: No Cancer: No Cardiac Disorders: No CVA: No COPD: No CHF: No Dementia: No Diabetes: No GI Disorders: No Disorders: No HTN: No Hypercholesterolemia: No Kidney Stones: No Liver Disease: No Seizures: No Thyroid Disease: No - Surgical History Abdominal Surgery: No Appendectomy: No Cardiac Surgery: No Cholecystectomy: No Lung Surgery: No Neurologic Surgery: No Orthopedic Surgery: No - Reproductive History Testicular Surgery: No - Suicide/Smoking/Psychosocial Hx Smoking History: Never smoked Have you smoked in the past 12 months: No Number of Cigarettes Smoked Daily: 10 Cigars Per Day: 0 Information on smoking cessation initiated: No 'Breaking Loose' booklet given: 09/03/17 Hx Alcohol Use: No Drug/Substance Use Hx: No Substance Use Type: Alcohol Hx Substance Use Treatment: No Review of Systems - Review of Systems Able to Perform ROS?: Yes Comments:: 09/04/17 23:01 GENERAL/CONSTITUTIONAL: Positive for fall. No fever or chills. No weakness. HEAD, EYES, EARS, NOSE AND THROAT: No change in vision. No ear pain or discharge. No sore throat. CARDIOVASCULAR: No chest pain, palpitations, or lightheadedness. RESPIRATORY: No cough, wheezing, shortness of breath, or hemoptysis. GASTROINTESTINAL: No nausea, vomiting, diarrhea, constipation, or abdominal pain. GENITOURINARY: No dysuria, frequency, hematuria, or change in urination. MUSCULOSKELETAL: No joint or muscle swelling or pain. No neck or back pain. SKIN: No rash or lesions. NEUROLOGIC: No headache, numbness, tingling, weakness, loss of consciousness, or change in strength/sensation. ENDOCRINE: No increased thirst. No abnormal weight change. HEMATOLOGIC/LYMPHATIC: No anemia, easy bleeding, or history of blood clots. ALLERGIC/IMMUNOLOGIC: No hives or skin allergy. Is the patient limited Vietnamese proficient: No *Physical Exam - Vital Signs Last Vital Signs Temp Pulse Resp BP Pulse Ox 99.0 F 72 18 178/106 99 09/04/17 21:11 09/04/17 21:11 09/04/17 21:11 09/04/17 21:11 09/04/17 21:11 - Physical Exam Comments: 09/04/17 23:01 GENERAL: Well developed, well nourished. Awake and alert. No acute distress. HEENT: Normocephalic, atraumatic. Hearing grossly normal. Moist mucous membranes. PERRLA, EOMI. No conjunctival pallor. Sclera are non-icteric. Oropharynx is clear. NECK: Supple. Full ROM. CARDIOVASCULAR: Regular rate and rhythm. No murmurs, rubs, or gallops. PULMONARY: No evidence of respiratory distress. Lungs clear to auscultation bilaterally. No wheezing, rales or rhonchi. ABDOMINAL: Soft. Non-tender. Non-distended. No rebound or guarding. GENITOURINARY: No CVA tenderness bilaterally. MUSCULOSKELETAL: Normal range of motion at all joints. No bony deformities or tenderness. EXTREMITIES: No cyanosis. No clubbing. No edema. No calf tenderness. SKIN: Warm and dry. Normal capillary refill. No rashes. No jaundice. NEUROLOGICAL: Alert, awake, appropriate. Cranial nerves 2-12 intact. No deficits to light touch and temperature in face, upper extremities and lower extremities. No motor deficits in the in face, upper extremities and lower extremities. Finger to nose normal bilaterally. Normal speech. Gait is abnormal with ataxia, especially as patient stood up out of bed. PSYCHIATRIC: Cooperative. Good eye contact. Appropriate mood and affect. ED Treatment Course - RADIOLOGY Radiology Studies Ordered: Category Date Time Status HEAD CT WITHOUT CONTRAST [CT] Stat CT Scan 09/04/17 21:40 Completed Medical Decision Making - Medical Decision Making 09/04/17 22:46 The patient is a 52M with a PMH of EtOH abuse who presents after having a fall at [facility]. The patient denies head trauma but states he's had an unsteady gait x 1 year which is appreciated on exam. CTH negative. Will give 10 norvasc for BP control and monitor. 09/05/17 00:09 Repeat BP is 141/85. Will d/c home with 5mg qD for 2 weeks and can be adjusted by PCP. 09/05/17 00:10 I have discussed this with the patient. Will d/c back to [facility]. *DC/Admit/Observation/Transfer Diagnosis at time of Disposition: Alcohol dependence with uncomplicated withdrawal - Discharge Dispostion Disposition: HOME Condition at time of disposition: Stable Decision to Admit order: No - Prescriptions Prescriptions: Amlodipine Besylate [Norvasc -] 5 mg PO DAILY #14 tab - Referrals - Patient Instructions Additional Instructions: Please follow up with your primary care physician in 2-3 days. Please return to the ER if you have any signs or symptoms of chest pain, shortness of breath, uncontrollable fever, chills, nausea, vomiting, numbness, tingling, or weakness in any part of your body, changes in vision, or slurred speech. Please take your medications as prescribed. Please return to the ER if symptoms persist, worsen, or new symptoms arise. - Post Discharge Activity
[2017-09-04] MEDS ORDERED: amLODIPine BESYLATE 10 MG TABLET (FP) PO ONE (22:57)
[2017-09-04 23:16] VITALS: TEMP 98
[2017-09-04] MEDS ORDERED: amLODIPine BESYLATE 5 MG TABLET (FP) ONE (23:17)
[2017-09-05 00:04] VITALS: BP 141/85; PULSE 78
== END 2017-09-05 02:15 | disposition home or self-care (01) ==
LOC: JER 21:05
DX: F10.230 Alcohol dependence with withdrawal, uncomplicated (principal); I10 Essential (primary) hypertension; F17.210 Nicotine dependence, cigarettes, uncomplicated; W18.39XA Other fall on same level, initial encounter; Y93.89 Activity, other specified; Y92.238 Other place in hospital as the place of occurrence of the external cause; Y99.8 Other external cause status
CPT/HCPCS: 70450-TC; 99282-25